=== PATIENT | female | born 1940 | race African-American/Black ===

== ENCOUNTER 2018-01-04 16:22 | Emergency (ER) | payer MEDICARE, OTHER ==
[2018-01-04] MEDS ORDERED: ASPIRIN PO ONE (16:31)
[2018-01-04 17:02] LABS: Mean Corpuscular HGB Conc 29 % (30-34); Red Blood Count 5.87 M/mm3 (3.65-5.03)
[2018-01-04 17:12] LABS: BUN/Creatinine Ratio 18; Blood Urea Nitrogen 14 mg/dL (7-17); Calcium 9.5 mg/dL (8.4-10.2); Hemolysis Index 14
[2018-01-04 17:13] LABS: Hematocrit 31.8 % (30.3-42.9); Hemoglobin 9.2 gm/dl (10.1-14.3); Mean Corpuscular Hemoglobin 16 pg (28-32); Mean Corpuscular Volume 54 fl (79-97); Platelet Count 199 K/mm3 (140-440); Red Cell Distribution Width 24.6 % (13.2-15.2)
[2018-01-04] MEDS ORDERED: ZOFRAN IV ONE (17:13)
--- NOTE | 2018-01-04 17:15 | Cat Scan Report ---
FINAL REPORT EXAM: CT HEAD/BRAIN WO CON HISTORY: sinha, dizzy, htn TECHNIQUE: 2.5 millimeter axial images from the skullbase to the vertex. Comparison: None FINDINGS: There is no evidence of an acute intracranial process, intracranial hemorrhage or mass effect. Ventricular size is concordant with the degree of atrophy. There is atherosclerotic vascular calcification of the internal carotid arteries bilaterally at the skullbase. The visualized portions of the orbits, paranasal and mastoid sinuses are unremarkable. The bony structures are notable for areas of decreased density within the bony structures that appear to be secondary to venous lakes and probable arachnoid granulation in the left convexity. IMPRESSION: 1. No evidence of an acute intracranial process, intracranial hemorrhage or mass effect.
--- NOTE | 2018-01-04 17:53 | Emergency Department Report ---
ED Headache HPI - General Chief Complaint: High BP Stated Complaint: HIGH B/ DIZZINES Time Seen by Provider: 01/04/18 16:37 Source: patient Exam Limitations: no limitations - History of Present Illness Initial Comments: 77-year-old female with a past medical history of hypertension, diabetes, an asthma presents to the hospital complaining of elevated blood pressure and headache. Patient went to her primary care doctor's office for a scheduled appointment. Her blood pressure was noted to be elevated. She received Clonidine 0.1 mg prior to arrival then presented to the ED with persistently elevated pressure of 203/74. Patient complains of a headache described as throbbing that feels like her head in her ears are going to explode. She complains of feeling lightheaded with sitting up nausea but denies a vertiginous or spinning sensation. No blurred vision, focal weakness, focal numbness, neck pain reported. Patient has been compliant with her blood pressure medication. Patient reports that her headache has improved waiting to be evaluated in the ED. PMD: Dr. Willa Faust Allergies/Adverse Reactions: Allergies No Known Allergies Allergy (Verified 05/17/15 10:01) Home Medications: Ambulatory Orders Advair Diskus 100-50 mcg 1 puff INHALATION DAILY 05/17/15 Ferrous Sulfate 325 mg PO DAILY 05/17/15 Levemir Flextouch 25 units SQ DAILY 05/17/15 Metoprolol 25 mg PO DAILY 05/17/15 Niacin 250 mg PO DAILY 05/17/15 NovoLOG 100 UNITS/ML VIAL 8 units SQ HS PRN 05/17/15 Xanax TAB 0.25 mg PO DAILY 05/17/15 metFORMIN 500 mg PO BID 05/17/15 Losartan [Cozaar] 100 mg PO QDAY 01/04/18 Spironolactone [Aldactone] 12.5 mg PO QDAY 01/04/18 cloNIDine [Catapres] 0.1 mg PO BID 01/04/18 ED Review of Systems ROS: Stated complaint: HIGH B/ DIZZINES Other details as noted in HPI Comment: All other systems reviewed and negative ED Past Medical Hx - Past Medical History Hx Hypertension: Yes Hx Diabetes: Yes Hx Asthma: Yes - Surgical History Hx Cholecystectomy: Yes - Social History Smoking Status: Never Smoker - Medications Home Medications: Home Medications Medication Instructions Recorded Confirmed Last Taken Type Advair Diskus 100-50 mcg 1 puff INHALATION DAILY 05/17/15 01/04/18 05/16/15 History Ferrous Sulfate 325 mg PO DAILY 05/17/15 01/04/18 05/16/15 History Levemir Flextouch 25 units SQ DAILY 05/17/15 01/04/18 05/16/15 History Metoprolol 25 mg PO DAILY 05/17/15 01/04/18 05/16/15 History Niacin 250 mg PO DAILY 05/17/15 01/04/18 05/16/15 History NovoLOG 100 UNITS/ML VIAL 8 units SQ HS PRN 05/17/15 01/04/18 05/16/15 History Xanax TAB 0.25 mg PO DAILY 05/17/15 01/04/18 05/16/15 History metFORMIN 500 mg PO BID 05/17/15 01/04/18 05/16/15 History Losartan [Cozaar] 100 mg PO QDAY 01/04/18 01/04/18 Unknown History Spironolactone [Aldactone] 12.5 mg PO QDAY 01/04/18 01/04/18 Unknown History cloNIDine [Catapres] 0.1 mg PO BID 01/04/18 01/04/18 Unknown History ED Physical Exam - General Limitations: No Limitations - Other Other exam information: General: No limitations, patient is alert in no acute distress Head exam: Atraumatic, normocephalic Eyes exam: Normal appearance, pupils equal reactive to light, extraocular movements intact ENT: Moist mucous membrane, normal oropharynx Neck exam: Normal inspection, full range of motion, no meningismus nontender Respiratory exam: Clear to auscultation bilateral, no wheezes, rales, crackles Cardiovascular: Normal rate and rhythm, normal heart sounds Abdomen: Soft, nondistended, and nontender, with normal bowel sounds, no rebound, or guarding Extremity: Full range of motion normal inspection no deformity Back: Normal Inspection, full range of motion, no tenderness Neurologic: Alert, oriented x3, cranial nerves intact, no motor or sensory deficit , [id number] function intact Psychiatric: normal affect, normal mood Skin: Warm, dry, intact ED Course Vital Signs 01/04/18 01/04/18 01/04/18 16:26 17:37 20:25 Temperature 97.8 F Pulse Rate 66 60 62 Respiratory 16 Rate Blood Pressure 203/74 205/78 Blood Pressure 184/59 [Left] O2 Sat by Pulse 100 Oximetry 01/04/18 01/04/18 01/04/18 21:00 21:30 22:00 Temperature Pulse Rate 61 60 58 L Respiratory 14 12 14 Rate Blood Pressure Blood Pressure 149/56 135/48 125/48 [Left] O2 Sat by Pulse 99 98 97 Oximetry 01/04/18 22:30 Temperature Pulse Rate 56 L Respiratory 15 Rate Blood Pressure Blood Pressure 110/45 [Left] O2 Sat by Pulse 97 Oximetry ED Medical Decision Making - Lab Data Result diagrams: 01/04/18 16:43 01/04/18 16:43 Lab Results 01/04/18 01/04/18 01/04/18 Range/Units 16:43 16:43 16:46 WBC 8.2 (4.5-11.0) K/mm3 RBC 5.87 H (3.65-5.03) M/mm3 Hgb 9.2 L (10.1-14.3) gm/dl Hct 31.8 (30.3-42.9) % MCV 54 L (79-97) fl MCH 16 L (28-32) pg MCHC 29 L (30-34) % RDW 24.6 H (13.2-15.2) % Plt Count 199 (140-440) K/mm3 Add Manual Diff Complete Total Counted 100 Seg Neuts % (Manual) 62.0 (40.0-70.0) % Band Neutrophils % 0 % Lymphocytes % (Manual) 23.0 (13.4-35.0) % Reactive Lymphs % (Man) 0 % Monocytes % (Manual) 8.0 H (0.0-7.3) % Eosinophils % (Manual) 7.0 H (0.0-4.3) % Basophils % (Manual) 0 (0.0-1.8) % Metamyelocytes % 0 % Myelocytes % 0 % Promyelocytes % 0 % Blast Cells % 0 % Nucleated RBC % Not Reportable Seg Neutrophils # Man 5.1 (1.8-7.7) K/mm3 Band Neutrophils # 0.0 K/mm3 Lymphocytes # (Manual) 1.9 (1.2-5.4) K/mm3 Abs React Lymphs (Man) 0.0 K/mm3 Monocytes # (Manual) 0.7 (0.0-0.8) K/mm3 Eosinophils # (Manual) 0.6 H (0.0-0.4) K/mm3 Basophils # (Manual) 0.0 (0.0-0.1) K/mm3 Metamyelocytes # 0.0 K/mm3 Myelocytes # 0.0 K/mm3 Promyelocytes # 0.0 K/mm3 Blast Cells # 0.0 K/mm3 WBC Morphology Not Reportable Hypersegmented Neuts Not Reportable Hyposegmented Neuts Not Reportable Hypogranular Neuts Not Reportable Smudge Cells Not Reportable Toxic Granulation Not Reportable Toxic Vacuolation Not Reportable Dohle Bodies Not Reportable Pelger-Huet Anomaly Not Reportable Corbin Rods Not Reportable Platelet Estimate Consistent w auto Clumped Platelets Not Reportable Plt Clumps, EDTA Not Reportable Large Platelets Not Reportable Giant Platelets Not Reportable Platelet Satelliting Not Reportable Plt Morphology Comment Not Reportable RBC Morphology Not Reportable Dimorphic RBCs Not Reportable Polychromasia Not Reportable Hypochromasia 2+ Poikilocytosis 1+ Anisocytosis 2+ Microcytosis 2+ Macrocytosis Not Reportable Spherocytes Not Reportable Pappenheimer Bodies Not Reportable Sickle Cells Not Reportable Target Cells Few Tear Drop Cells 1+ Ovalocytes 1+ Helmet Cells Not Reportable [place] Bodies Not Reportable [place] Rings Not Reportable [place] Cells Not Reportable Bite Cells Not Reportable Crenated Cell Not Reportable Elliptocytes 1+ Acanthocytes (Spur) Not Reportable Rouleaux Not Reportable Hemoglobin C Crystals Not Reportable Schistocytes Rare Malaria parasites Not Reportable Darrius Bodies Not Reportable Hem Pathologist Commnt No Sodium 136 L (137-145) mmol/L Potassium 4.7 (3.6-5.0) mmol/L Chloride 102.0 (98-107) mmol/L Carbon Dioxide 23 (22-30) mmol/L Anion Gap 16 mmol/L BUN 14 (7-17) mg/dL Creatinine 0.8 (0.7-1.2) mg/dL Estimated GFR > 60 ml/min BUN/Creatinine Ratio 18 % Glucose 171 H (65-100) mg/dL Calcium 9.5 (8.4-10.2) mg/dL Magnesium 1.40 L (1.7-2.3) mg/dL Troponin T < 0.010 (0.00-0.029) ng/mL 01/04/18 Range/Units 19:32 WBC (4.5-11.0) K/mm3 RBC (3.65-5.03) M/mm3 Hgb (10.1-14.3) gm/dl Hct (30.3-42.9) % MCV (79-97) fl MCH (28-32) pg MCHC (30-34) % RDW (13.2-15.2) % Plt Count (140-440) K/mm3 Add Manual Diff Total Counted Seg Neuts % (Manual) (40.0-70.0) % Band Neutrophils % % Lymphocytes % (Manual) (13.4-35.0) % Reactive Lymphs % (Man) % Monocytes % (Manual) (0.0-7.3) % Eosinophils % (Manual) (0.0-4.3) % Basophils % (Manual) (0.0-1.8) % Metamyelocytes % % Myelocytes % % Promyelocytes % % Blast Cells % % Nucleated RBC % Seg Neutrophils # Man (1.8-7.7) K/mm3 Band Neutrophils # K/mm3 Lymphocytes # (Manual) (1.2-5.4) K/mm3 Abs React Lymphs (Man) K/mm3 Monocytes # (Manual) (0.0-0.8) K/mm3 Eosinophils # (Manual) (0.0-0.4) K/mm3 Basophils # (Manual) (0.0-0.1) K/mm3 Metamyelocytes # K/mm3 Myelocytes # K/mm3 Promyelocytes # K/mm3 Blast Cells # K/mm3 WBC Morphology Hypersegmented Neuts Hyposegmented Neuts Hypogranular Neuts Smudge Cells Toxic Granulation Toxic Vacuolation Dohle Bodies Pelger-Huet Anomaly Corbin Rods Platelet Estimate Clumped Platelets Plt Clumps, EDTA Large Platelets Giant Platelets Platelet Satelliting Plt Morphology Comment RBC Morphology Dimorphic RBCs Polychromasia Hypochromasia Poikilocytosis Anisocytosis Microcytosis Macrocytosis Spherocytes Pappenheimer Bodies Sickle Cells Target Cells Tear Drop Cells Ovalocytes Helmet Cells [place] Bodies [place] Cells Bite Cells Crenated Cell Elliptocytes Acanthocytes (Spur) Rouleaux Hemoglobin C Crystals Schistocytes Malaria parasites Darrius Bodies Hem Pathologist Commnt Sodium (137-145) mmol/L Potassium (3.6-5.0) mmol/L Chloride (98-107) mmol/L Carbon Dioxide (22-30) mmol/L Anion Gap mmol/L BUN (7-17) mg/dL Creatinine (0.7-1.2) mg/dL Estimated GFR ml/min BUN/Creatinine Ratio % Glucose (65-100) mg/dL Calcium (8.4-10.2) mg/dL Magnesium (1.7-2.3) mg/dL Troponin T < 0.010 (0.00-0.029) ng/mL - EKG Data -: EKG Interpreted by Me EKG shows normal: sinus rhythm, axis (qrs -8), QRS complexes (qrsd 92), ST-T waves (no stemi/t inv) Rate: normal (61) - Radiology Data Radiology results: report reviewed CT head: No acute findings - Medical Decision Making pt's headache improved with blood pressure control. She recently started a medication for leg cramps and isn't sure if this is causing her high blood pressure and her symptoms. They were informed that her magnesium was low and this can also caused leg cramps (iv mag given in ED). She will hold this new unknown medication until re-discussing it with the PMD. Family has a blood pressure cuff at home and continue to monitor blood pressure and symptoms. Systolic greater than 200 and he afternoon patient may take an additional clonidine 0.1 mg. Recommend follow-up with primary care doctor for additional follow-up. Patient has normal labs and CT head in the ED Patient has microcytic anemia therefore likely secondary to iron deficiency. - Differential Diagnosis hypertensive emergency/urgency, ICH, mass, vertigo, anemia Critical Care Time: No Critical care attestation.: If time is entered above; I have spent that time in minutes in the direct care of this critically ill patient, excluding procedure time. ED Disposition Clinical Impression: Uncontrolled hypertension, Headache, Hypomagnesemia, Anemia Disposition: DC-01 TO HOME OR SELFCARE Is pt being admited?: No Does the pt Need Aspirin: No Condition: Stable Instructions: Acute Headache (ED), Hypertension (ED), Hypomagnesemia (ED), Anemia (ED) Additional Instructions: Continue your current medication. You may take Tylenol or Motrin as needed for pain. Continue to monitor your blood pressure at home. You may take an addition of clonidine 0.1 mg in the afternoon if you're a systolic blood pressure (top number of your blood pressure reading) is greater than 190. It is very important that you follow-up with your primary care doctor for further monitoring and medication adjustment. Please return if symptoms worsen as indicated by your discharge instructions. Also recommend taking a multivitamin with iron for anemia. Referrals: PRIMARY CARE, [Primary Care Provider] - 2-3 Days Time of Disposition: 22:56 - Assessment Assessment Interval: Baseline - Level of Consciousness 1a. Level of Consciousness: alert/keenly responsive - LOC Questions 1b. LOC Questions: answers both correctly - LOC Command 1c. LOC Commands: performs tasks correctly - Best Gaze 2. Best Gaze: normal - Visual 3. Visual: no visual loss - Facial Palsy 4. Facial Palsy: normal symmetrical movement - Motor Arm 5b. Motor Arm Right: no drift 5a. Motor Arm Left: no drift - Motor Leg 6a. Motor Leg Left: no drift 6b. Motor Leg Right: no drift - Limb Ataxia 7. Limb Ataxia: absent - Sensory 8. Sensory: normal - Best Language 9. Best Language: no aphasia - Dysarthria 10. Dysarthria: normal - Extinction and Inattention 11. Extinction/Inattention: no abnormality - Scoring Total Score: 0 Stroke Severity: No Stroke Symptoms
[2018-01-04] MEDS ORDERED: MAGNESIUM SULFATE 2GM/50ML 2 GM/50 ML BAG IV ONE (17:54)
[2018-01-04 18:07] LABS: Anisocytosis 2+; Basophils % (Manual) 0 % (0.0-1.8); Hypochromasia 2+; Poikilocytosis 1+; Total Cells Counted 100
[2018-01-04 18:08] LABS: Ovalocytes 1+; Platelet Estimate Consistent w Auto; Schistocytes Rare; Target Cells Few; Tear Drop Cells 1+
[2018-01-04] MEDS ORDERED: CATAPRES PO ONE (19:10)
[2018-01-04] MEDS ORDERED: GLUCOPHAGE PO ONE (19:10)
[2018-01-04 23:07] VITALS: BP 111/50
== END 2018-01-04 23:08 | disposition home or self-care (01) ==
LOC: ED 16:22
DX: I10 Essential (primary) hypertension (principal); D64.89 Other specified anemias; E83.42 Hypomagnesemia; E11.9 Type 2 diabetes mellitus without complications; J45.909 Unspecified asthma, uncomplicated; Z90.49 Acquired absence of other specified parts of digestive tract; Z79.899 Other long term (current) drug therapy
CPT/HCPCS: 36415; 70450; 80048; 83735; 84484; 85007; 85025; 93005; 93010; 96365; 96375; 99285; J2405; J3475